=== PATIENT | male | born 1995 | race Caucasian/White ===

== ENCOUNTER 2017-03-09 21:11 | Emergency (ER) | payer OTHER ==
[2017-03-09 21:39] VITALS: BP 118/74
--- NOTE | 2017-03-09 21:46 | UC ---
Respiratory Complaint HPI - HPI Summary HPI Summary: 21 y/o male presents to the urgent care c/o nasal congestion w/ green discharge , productive cough, +PND for the past 5 days. Pt states cough is getting worse today with pain when he coughs. Pt also states he lives in ad dorm at school and 2 friends have been Dx with pneumonia this week. He has not taking anything to alleviate symptoms. He also had chills and body aches this morning. Pt denies SOB, chest pain, abdominal pain, N/V/D - History of Current Complaint Chief Complaint: UCGeneralIllness Stated Complaint: COUGH,ACHES Time Seen by Provider: 03/09/17 21:41 Hx Obtained From: Patient Onset/Duration: Gradual Onset, Lasting Days - 5 days, Still Present, Worse Since - today Timing: Constant Severity Initially: Mild Severity Currently: Moderate Pain Intensity: 5 Pain Scale Used: 0-10 Numeric Character: Cough: Productive, Sputum Description: - green Aggravating Factors: Recumbent Position Alleviating Factors: Nothing Associated Signs And Symptoms: Positive: Chills, URI, Nasal Congestion. Negative: Dyspnea, Wheezing - Risk Factors Pulmonary Embolism Risk Factors: Negative Cardiac Risk Factors: Negative Pseudomonas Risk Factors: Negative Tuberculosis Risk Factors: Negative - Allergies/Home Medications Allergies/Adverse Reactions: Allergies Allergy/AdvReac Type Severity Reaction Status Date / Time No Known Allergies Allergy Verified 03/09/17 21:31 PMH/Surg Hx/FS Hx/Imm Hx Previously Healthy: Yes - Pt denies PMHX - Surgical History Surgical History: None - Family History Family History: Hailey thyroditis - Social History Occupation: Student Lives: Dormitory/Roommates Alcohol Use: Occasionally Substance Use Type: None Smoking Status (MU): Never Smoked Tobacco - Immunization History Vaccination Up to Date: Yes Review of Systems Constitutional: Chills, Other - body aches Skin: Negative Eyes: Negative ENT: Sore Throat, Nasal Discharge Respiratory: Cough - productive Cardiovascular: Negative Gastrointestinal: Negative Genitourinary: Negative Motor: Negative Neurovascular: Negative Musculoskeletal: Negative Neurological: Negative Psychological: Negative Is Patient Immunocompromised?: No All Other Systems Reviewed And Are Negative: Yes Physical Exam Triage Information Reviewed: Yes Vital Signs: Initial Vital Signs Temp 99.6 F 03/09/17 21:32 Pulse 96 03/09/17 21:32 Resp 16 03/09/17 21:32 BP 118/74 03/09/17 21:32 Pulse Ox 98 03/09/17 21:32 - Additional Comments Vital Signs Reviewed: Yes General: well developed, well nourished male sitting in the examining table w/o any apparent distress Eyes: Positive: Conjunctiva Clear - PERRLA, EOMI, fundi grossly normal ENT: Positive: Normal ENT inspection, Hearing grossly normal, Pharynx normal, Nasal congestion - edematous and erythematous nasal mucosa, Nasal drainage - yellowish drainage, TMs normal. Negative: Tonsillar swelling, Tonsillar exudate Neck: Positive: Supple, Nontender, No Lymphadenopathy Respiratory: no orthopnea or dyspnea. Able to speak in full sentences, no retractions or accessory muscle use, no tripod position, stridor, or head bobbing. positive breasth sounds, B/l posterior upper lungs with mild rhonchi. no wheezes,or rales. Cardiovascular: Positive: RRR, No Murmur, Pulses Normal, Brisk Capillary Refill Abdomen Description: Positive: Nontender, No Organomegaly, Soft. Negative: CVA Tenderness (R), CVA Tenderness (L) Bowel Sounds: Positive: Present Musculoskeletal Exam: Normal Musculoskeletal: Positive: Strength Intact, ROM Intact, No Edema Neurological Exam: Normal Psychological Exam: Normal Skin Exam: Normal UC Diagnostic Evaluation - Laboratory O2 Sat by Pulse Oximetry: 98 Respiratory Course/Dx - Course Course Of Treatment: 21 y/o male presents to the urgent care c/o nasal congestion w/ green discharge, productive cough, +PND for the past 5 days. Pt states cough is getting worse today with pain when he coughs. Pt also states he lives in ad dorm at school and 2 friends have been Dx with pneumonia this week. He has not taking anything to alleviate symptoms. He also had chills and body aches this morning. Pt denies SOB, chest pain, abdominal pain, N/V/D. Hx obtained. Pt with Acute bronchitis on examination. Pt Rx Z-naveen PO and Advised to take Delsym PO OTC to alelviate cough. Pt advised to increase fluid intake and eat well. if not improvement or worsening of symptoms to return to the urgent care or f/u with PCP for further management. pt understood and agreed with plan of care - Differential Dx/Diagnosis Differential Diagnosis/HQI/PQRI: Bronchitis, Influenza, Laryngitis, Lower Resp Infection, Sinusitis Provider Diagnoses: 1- Acute bronchitis Discharge - Discharge Plan Condition: Stable Disposition: HOME Prescriptions: Azithromycin TAB* [Zithromax TAB (Z-NAVEEN) 250 mg #6 tabs] 250 mg PO DAILY #4 tab Patient Education Materials: Acute Bronchitis (ED) [facility] - [facility] Days Additional Instructions: 1-Please take full course of antibiotic to avoid resistance. 2-Take Delsym PO OTC directed to alleviate cough. Increase fluid intake, rest and eat well. 3- If symptoms do not improve or worsen or your develop SOB with fever and severe wheezing please go immediately to the ER further evaluation and treatment. 4- F/u with your PCP in 3 days if not improvement of symptoms for further management
[2017-03-09] MEDS ORDERED: Azithromycin TAB* 250 MG PO ONE (21:57)
== END 2017-03-09 22:17 | disposition home or self-care (01) ==
LOC: UCEAST 21:11
DX: J20.9 Acute bronchitis, unspecified (principal)
CPT/HCPCS: 87502; 99212; A9270-GY; G0463

== ENCOUNTER 2017-11-09 23:45 | Emergency (ER) | payer OTHER ==
[2017-11-10] MEDS ORDERED: oxyCODONE/Acetamin 5/325 MG* TAB PO ONE (03:48)
--- NOTE | 2017-11-10 03:51 | ED ---
Lower Extremity - HPI Summary HPI Summary: Patient is a 22 y/o M w/ c/o right ankle pain onsetting today. He reports that he was on a metal Razor scooter and jumped on the scooter. The scooter hit something, which caused the metal part of the scooter to strike his right ankle. Patient reports taking Advil 4 hours ago. He notes difficulty ambulating. On triage, pain is rated 7/10, ambulation is noted to aggravate Sx with nothing reported to alleviate Sx. Home medications and allergies are reviewed. - History of Current Complaint Chief Complaint: EDExtremityLower Stated Complaint: RT ANKLE INJURY Time Seen by Provider: 11/10/17 03:43 Hx Obtained From: Patient Mechanism Of Injury: Blunt Trauma, Direct Blow - metal scooter Onset of Pain: Prior to Arrival Onset/Duration: Still Present Severity Currently: Moderate - 5/10 Pain Intensity: 5 Pain Scale Used: 0-10 Numeric - 5/10 Timing: Constant Location: Is Discrete @ - right ankle Associated Signs And Symptoms: Positive: Other - right ankle pain Aggravating Factor(s): Ambulation Alleviating Factor(s): Nothing - Allergies/Home Medications Allergies/Adverse Reactions: Allergies Allergy/AdvReac Type Severity Reaction Status Date / Time No Known Allergies Allergy Verified 11/09/17 23:51 PMH/Surg Hx/FS Hx/Imm Hx Respiratory History: Denies: Hx Asthma Sensory History: Denies: Hx Legally Blind Opthamlomology History: Denies: Hx Legally Blind Infectious Disease History: No Infectious Disease History: Denies: Traveled Outside the [place] in Last 30 Days - Family History Known Family History: Negative: Blood Disorder Family History: Hailey thyroditis - Social History Alcohol Use: Occasionally Substance Use Type: Reports: None Smoking Status (MU): Never Smoked Tobacco Review of Systems Negative: Fever - on vitals, temp is 99.8 F Positive: Other - right ankle pain All Other Systems Reviewed And Are Negative: Yes Physical Exam - Summary Physical Exam Summary: VITAL SIGNS: Reviewed. GENERAL: Patient is a well-developed and nourished male who is lying comfortable in the stretcher. Patient is not in any acute respiratory distress. HEAD AND FACE: No signs of trauma. No ecchymosis, hematomas or skull depressions. No sinus tenderness. EYES: PERRLA, EOMI x 2, No injected conjunctiva, no nystagmus. EARS: Hearing grossly intact. Ear canals and tympanic membranes are within normal limits. MOUTH: Oropharynx within normal limits. NECK: Supple, trachea is midline, no adenopathy, no JVD, no carotid bruit, no c- spine tenderness, neck with full ROM. CHEST: Symmetric, no tenderness at palpation LUNGS: Clear to auscultation bilaterally. No wheezing or crackles. CVS: Regular rate and rhythm, S1 and S2 present, no murmurs or gallops appreciated. ABDOMEN: Soft, non-tender. No signs of distention. No rebound no guarding, and no masses palpated. Bowel sounds are normal. EXTREMITIES: FROM in all major joints, no cyanosis or clubbing. Mild tenderness and swelling at right ankle. NEURO: Alert and oriented x 3. No acute neurological deficits. Speech is normal and follows commands. SKIN: Dry and warm Triage Information Reviewed: Yes Vital Signs On Initial Exam: Initial Vitals Temp Pulse Resp BP Pulse Ox 99.8 F 69 16 115/97 100 11/09/17 23:48 11/09/17 23:48 11/09/17 23:48 11/09/17 23:48 11/09/17 23:48 Vital Signs Reviewed: Yes Diagnostics - Vital Signs Vital Signs Temp Pulse Resp BP Pulse Ox 11/10/17 01:50 98.1 F 69 16 121/63 100 11/09/17 23:48 99.8 F 69 16 115/97 100 - Laboratory Lab Statement: Any lab studies that have been ordered have been reviewed, and results considered in the medical decision making process. - Radiology right ankle x-ray Xray Interpretation: No Acute Changes Radiology Interpretation Completed By: ED Physician - no acute fracture or dislocation, pending official report. Lower Extremity Course/Dx - Course Course Of Treatment: Patient is a 22 y/o M w/ c/o right ankle pain onsetting today. He reports that he was on a metal Razor scooter and jumped on the scooter. The scooter hit something, which caused the metal part of the scooter to strike his right ankle. Patient reports taking Advil 4 hours ago. He notes difficulty ambulating. On triage, pain is rated 7/10, ambulation is noted to aggravate Sx with nothing reported to alleviate Sx. Physical exam showed Mild tenderness and swelling at right ankle. Right ankle x-ray showed no acute fracture or dislocation, pending official report. He will be discharged to home and is instructed to follow up with orthopedist in 1-2 days. Patient understands and agrees with this plan. Dx of right ankle sprain. - Diagnoses Provider Diagnoses: Right ankle sprain Discharge - Sign-Out/Discharge Documenting (check all that apply): Patient Departure - discharge - Discharge Plan Condition: Stable Disposition: HOME Prescriptions: Ibuprofen TAB* [Motrin TAB* 800 MG] 800 mg PO Q6H PRN #30 tab PRN Reason: Pain Patient Education Materials: Ankle Sprain (ED) Referrals: Oleksandr Murphy MD [Medical Doctor] - 2 Days Additional Instructions: RETURN TO THE EMERGENCY DEPARTMENT FOR CHANGING OR WORSENING SYMPTOMS. FOLLOW UP WITH ORTHOPEDIST IN 1-2 DAYS. - Attestation Statements Document Initiated by Scribe: Yes Documenting Scribe: Nilesh King Provider For Whom Scribe is Documenting (Include Credential): Collin Grullon MD Scribe Attestation: Nilesh Suero , scribed for Collin Grullon MD on 11/10/17 at 0757.
[2017-11-10 04:05] VITALS: BP 141/91
--- NOTE | 2017-11-10 08:03 | RAD ---
HISTORY: pain s/p injury, right lateral ankle pain COMPARISONS: None VIEWS: 3 , Frontal, lateral, and oblique views of the right ankle FINDINGS: BONE DENSITY: Normal. BONES: There is no displaced fracture. JOINTS: There is no arthropathy. ALIGNMENT: There is no dislocation. SOFT TISSUES: There is soft tissue swelling predominantly over the lateral malleolus. OTHER FINDINGS: None. IMPRESSION: SOFT TISSUE SWELLING. NO ACUTE OSSEOUS INJURY. IF SYMPTOMS PERSIST, RECOMMEND REPEAT IMAGING. R0
== END 2017-11-10 04:02 | disposition home or self-care (01) ==
LOC: ED 23:45
DX: S93.401A Sprain of unspecified ligament of right ankle, initial encounter (principal); W22.8XXA Striking against or struck by other objects, initial encounter; Y93.I9 Activity, other involving external motion; Y92.9 Unspecified place or not applicable
CPT/HCPCS: 99282; A9270-GY

== ENCOUNTER 2018-03-04 02:28 | Emergency (ER) | payer OTHER ==
--- NOTE | 2018-03-04 03:00 | ED ---
Shortness of Breath - HPI Summary HPI Summary: Patient is a 22 y/o M presenting to ED with complaints of SOB since yesterday. He notes that he went for a run outside yesterday. After completing his run, he states that he felt SOB and that this has progressively worsened since. He denies Hx of asthma, notes he does not smoke. 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 On triage, associated severity is rated 7/10, nothing is noted to aggravate/alleviate Sx. Home medications and allergies are reviewed. - History of Current Complaint Chief Complaint: EDShortnessOfBreath Hx Obtained From: Patient Onset/Duration: Lasting Days - yesterday, Still Present Timing: Constant Current Severity: Severe - 7/10 Aggrevating Factors: Nothing Alleviating Factors: Nothing Associated Signs & Symptoms: Negative - Allergy/Home Medications Allergies/Adverse Reactions: Allergies Allergy/AdvReac Type Severity Reaction Status Date / Time No Known Allergies Allergy Verified 03/04/18 02:36 Home Medications: Home Medications NK [No Home Medications Reported] 03/04/18 [History Confirmed 03/04/18] PMH/Surg Hx/FS Hx/Imm Hx Respiratory History: Denies: Hx Asthma Sensory History: Denies: Hx Legally Blind Opthamlomology History: Denies: Hx Legally Blind Infectious Disease History: No Infectious Disease History: Denies: Traveled Outside the [place] in Last 30 Days - Family History Known Family History: Negative: Blood Disorder Family History: Hailey thyroditis - Social History Alcohol Use: Occasionally Substance Use Type: Reports: None Smoking Status (MU): Never Smoked Tobacco Review of Systems Negative: Fever Positive: Shortness Of Breath All Other Systems Reviewed And Are Negative: Yes Physical Exam - Summary Physical Exam Summary: VITAL SIGNS: Reviewed. GENERAL: Patient is a well-developed and nourished male who is lying comfortable in the stretcher. Patient is not in any acute respiratory distress. HEAD AND FACE: No signs of trauma. No ecchymosis, hematomas or skull depressions. No sinus tenderness. EYES: PERRLA, EOMI x 2, No injected conjunctiva, no nystagmus. EARS: Hearing grossly intact. Ear canals and tympanic membranes are within normal limits. MOUTH: Oropharynx within normal limits. NECK: Supple, trachea is midline, no adenopathy, no JVD, no carotid bruit, no c- spine tenderness, neck with full ROM. CHEST: Symmetric, no tenderness at palpation LUNGS: Clear to auscultation bilaterally. No wheezing or crackles. CVS: Regular rate and rhythm, S1 and S2 present, no murmurs or gallops appreciated. ABDOMEN: Soft, non-tender. No signs of distention. No rebound no guarding, and no masses palpated. Bowel sounds are normal. EXTREMITIES: FROM in all major joints, no edema, no cyanosis or clubbing. NEURO: Alert and oriented x 3. No acute neurological deficits. Speech is normal and follows commands. SKIN: Dry and warm Triage Information Reviewed: Yes Vital Signs On Initial Exam: Initial Vitals Temp Pulse Resp BP Pulse Ox 98.3 F 77 16 133/86 97 03/04/18 02:32 03/04/18 02:32 03/04/18 02:32 03/04/18 02:32 03/04/18 02:32 Vital Signs Reviewed: Yes Diagnostics - Vital Signs Vital Signs Temp Pulse Resp BP Pulse Ox 03/04/18 02:32 98.3 F 77 16 133/86 97 - Laboratory Lab Statement: Any lab studies that have been ordered have been reviewed, and results considered in the medical decision making process. - Radiology CXR Radiology Interpretation Completed By: ED Physician Summary of Radiographic Findings: no acute process Re-Evaluation - Re-Evaluation First Eval Re-Evaluation Time: 03:32 Comment: Results were discussed with the patient. At this time, he reports that he has a history of anxiety and that he used to take Xanax. Course/Dx - Course Course Of Treatment: Patient is a 22 y/o M presenting to ED with complaints of SOB since yesterday. He notes that he went for a run outside yesterday. After completing his run, he states that he felt SOB and that this has progressively worsened since. He denies Hx of asthma, notes he does not smoke. 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 Physical exam is normal. CXR shows no acute process. ABG is consistent with hyperventilation, patient is most likely anxious. Results were discussed with the patient, he will be discharged to home. Patient is agreeable with this. - Diagnoses Provider Diagnoses: Anxiety Discharge - Sign-Out/Discharge Documenting (check all that apply): Patient Departure - discharge - Discharge Plan Condition: Stable Disposition: HOME Patient Education Materials: Anxiety (ED) Referrals: [facility] [Outside] - 2 Days Additional Instructions: RETURN TO ED WITH ANY NEW OR WORSENING SYMPTOMS. FOLLOW UP WITH PRIMARY CARE PHYSICIAN WITHIN 2 DAYS. - Attestation Statements Document Initiated by Scribe: Yes Documenting Scribe: ROBINA BOURGEOIS Provider For Whom Scribe is Documenting (Include Credential): PATRICIA CARDENAS MD Scribe Attestation: IROBINA, scribed for PATRICIA CARDENAS MD on 03/04/18 at 0333. Status of Scribe Document: Ready
[2018-03-04] MEDS ORDERED: ALPRAZolam TAB* 0.5 MG PO ONE (03:34)
[2018-03-04 03:53] VITALS: BP 111/77
== END 2018-03-04 03:50 | disposition home or self-care (01) ==
LOC: ED 02:28
DX: F41.9 Anxiety disorder, unspecified (principal); R06.02 Shortness of breath
CPT/HCPCS: 36415; 71045; 82803; 99282; A9270-GY

== ENCOUNTER 2018-03-04 14:50 | Emergency (ER) | payer OTHER ==
[2018-03-04] MEDS ORDERED: NS 0.9% 1000 ML* 1,000 ML IV ONE (15:16)
[2018-03-04] MEDS ORDERED: LORazepam INJ* 2 MG/ML 1 ML VIAL IV PUSH ONE (15:17)
--- NOTE | 2018-03-04 15:29 | ED ---
Shortness of Breath - HPI Summary HPI Summary: A 22 y/o M presents to ED with c/o dyspnea onset two days ago and worsening. He went for a long run in the cold two days ago and the sx began after that. He describes his breathing as shallow and uncomfortable. Patient was evaluated in [facility] last night and given dx: anxiety, which he didn't feel was sufficient. Associated sx: wheezing, cough, fatigue, racing palpitations, muscular L-sided CP described as sharp. Denies: fever, urinary sx. Aggravating factors: cold air , deep breaths. Two weeks ago, pt had abd and testicular pain, and went to the ED back home, dx: prostatitis. 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 He did travel by plane to [place] two weeks ago. Pt used to be a distance runner, but hasn't been running recently. He has had a flu shot. Non-smoker. No PMHx of asthma, COPD, HTN, high cholesterol, thyroid dz. PMHx: anxiety, but he states it has not caused physical symptoms previously. He has not been around anyone sick. - History of Current Complaint Chief Complaint: EDShortnessOfBreath Time Seen by Provider: 03/04/18 15:15 Hx Obtained From: Patient Onset/Duration: Lasting Days, Still Present Timing: Constant Current Severity: Moderate Dyspnea At: Rest Aggrevating Factors: Deep Breaths, Other - cold air Associated Signs & Symptoms: Cough (Nonproductive), Wheezing, Chest Pain Unrelated to Cough - Allergy/Home Medications Allergies/Adverse Reactions: Allergies Allergy/AdvReac Type Severity Reaction Status Date / Time No Known Allergies Allergy Verified 03/04/18 14:58 PMH/Surg Hx/FS Hx/Imm Hx Previously Healthy: Yes Endocrine/Hematology History: Denies: Hx Thyroid Disease Cardiovascular History: Denies: Hx Hypertension Respiratory History: Denies: Hx Asthma, Hx Chronic Obstructive Pulmonary Disease (COPD) Sensory History: Denies: Hx Legally Blind Opthamlomology History: Denies: Hx Legally Blind Psychiatric History: Reports: Hx Anxiety Infectious Disease History: No Infectious Disease History: Denies: Traveled Outside the [place] in Last 30 Days - Family History Known Family History: Negative: Blood Disorder Family History: Hailey thyroditis - Social History Occupation: Student Lives: Dormitory/Roommates Alcohol Use: Occasionally Hx Substance Use: No Substance Use Type: Reports: None Hx Tobacco Use: No Smoking Status (MU): Never Smoked Tobacco Review of Systems Positive: Fatigue. Negative: Fever Positive: Palpitations, Chest Pain Positive: Cough, Other - dyspnea, shallow breathing, wheezing Negative: dysuria, hematuria All Other Systems Reviewed And Are Negative: Yes Physical Exam - Summary Physical Exam Summary: Appearance: Well appearing, no pain distress Skin: warm, dry, reflects adequate perfusion Head/face: normal Eyes: EOMI, DALIA ENT: mucous membranes moist Neck: supple, non-tender Respiratory: CTA, breath sounds present, occasional sighs Cardiovascular: RRR, pulses symmetrical Abdomen: non-tender, soft Bowel Sounds: present Musculoskeletal: normal, strength/ROM intact Neuro: normal, sensory motor intact, A&Ox3 Triage Information Reviewed: Yes Vital Signs On Initial Exam: Initial Vitals Temp Pulse Resp BP Pulse Ox 98.3 F 60 16 110/80 99 03/04/18 14:54 03/04/18 14:54 03/04/18 14:54 03/04/18 14:54 03/04/18 14:54 Vital Signs Reviewed: Yes Diagnostics - Vital Signs Vital Signs Temp Pulse Resp BP Pulse Ox 03/04/18 14:54 98.3 F 60 16 110/80 99 - Laboratory Result Diagrams: 03/04/18 15:29 03/04/18 15:29 Lab Statement: Any lab studies that have been ordered have been reviewed, and results considered in the medical decision making process. - EKG 1640 Cardiac Rate: NL - 61 bpm EKG Rhythm: Sinus Rhythm ST Segment: Normal Summary of EKG Findings: normal axis, normal interval Re-Evaluation - Re-Evaluation 1 Re-Evaluation Time: 17:01 Change: Improved Comment: Pt breathing better after breathing treatment. Discussing results and plan for dispo. Pt voiced understanding. Course/Dx - Course Course Of Treatment: nurses notes reviewed. alkalotic. xray clear. ddimer neg. likely viral. improved with breathing tx. will rx for delayed script zpak. prednisone and albuterol. - Diagnoses Differential Diagnosis/HQI/PQRI: Positive: Asthma, Bronchitis, Chest Wall Pain, Pulmonary Embolism Provider Diagnoses: Acute bronchitis Discharge - Sign-Out/Discharge Documenting (check all that apply): Patient Departure - D/C - Discharge Plan Condition: Improved Disposition: HOME Prescriptions: Albuterol HFA INHALER* [Ventolin HFA Inhaler*] 2 puff INH Q4H PRN #1 mdi PRN Reason: Sob/Wheezing Azithromycin TAB* [Zithromax TAB (Z-NAVEEN) 250 mg #6 tabs] 2 tab PO .TODAY, THEN 1 DAILY #1 naveen guaiFENesin [Guaifenesin ER] 600 mg PO BID #20 tab.er.12h predniSONE TAB* [Deltasone TAB*] 50 mg PO DAILY #5 tab Patient Education Materials: Acute Bronchitis (ED) Referrals: [facility] [Provider Group] Additional Instructions: Follow-up with [facility] or with the urgent care in the next 4-5 days if not better. Return with high fevers, difficulty breathing, worse, new symptoms or other concerns as discussed. No strenuous exercise for 10 days. - Billing Disposition and Condition Condition: IMPROVED Disposition: Home - Attestation Statements Document Initiated by Aishwarya: Yes Documenting Scribe: Nestor Nettles Provider For Whom Aishwarya is Documenting (Include Credential): Dr. Jorge Newton MD Scribe Attestation: INestor scribed for Dr. Jorge Newton MD on 03/04/18 at 1722. Scribe Documentation Reviewed: Yes Provider Attestation: The documentation as recorded by the Nestor hanks accurately reflects the service I personally performed and the decisions made by , Dr. Jorge Newton MD Status of Scribe Document: Viewed
[2018-03-04 15:38] LABS: ABS Basophils 0.1 10^3/ul (0-0.2); ABS Eosinophils 0.1 10^3/ul (0-0.6); ABS Lymphocytes 1.4 10^3/ul (1.0-4.8); ABS Monocytes 0.7 10^3/ul (0-0.8); ABS Neutrophils 2.8 10^3/ul (1.5-7.7); ABS Nucleated RBC 0 10^3/ul; Eosinophil % 2.6 %; Hematocrit 47 % (42-52); Hemoglobin 15.7 g/dl (14.0-18.0); Lymphocyte % 26.4 %; Mean Corpuscular HGB Conc 34 g/dl (31-36); Mean Corpuscular Hemoglobin 31 pg (27-31); Mean Corpuscular Volume 91 fL (80-94); Mean Platelet Volume 9.1 fL (7.4-10.4); Nucleated Red Blood Cells % 0; Platelet Count 184 10^3/ul (150-450); Red Blood Count 5.16 10^6/ul (4.00-5.40); Red Cell Distribution Width 13 % (10.5-15); White Blood Count 5.2 10^3/ul (3.5-10.8)
[2018-03-04] MEDS ORDERED: Albuterol/Ipratropium NEB.SOL* Albuterol 2.5 MG/Ipratropium 0.5 MG 3 ML INH ONE (15:45)
[2018-03-04 16:00] LABS: BUN/Creatinine Ratio 15.4 (8-20); Calcium 9.6 mg/dL (8.6-10.3); EGFR Non-African American 88.5 (>60); Potassium 3.8 mmol/L (3.5-5.0)
[2018-03-04 17:17] VITALS: BP 121/65
== END 2018-03-04 17:16 | disposition home or self-care (01) ==
LOC: ED 14:50
DX: J20.9 Acute bronchitis, unspecified (principal); F41.9 Anxiety disorder, unspecified
CPT/HCPCS: 36415; 80048; 84484; 85025; 85379; 93005; 96361; 96374; 99282; A9270-GY

== ENCOUNTER 2018-03-05 01:24 | Emergency (ER) | payer OTHER ==
--- NOTE | 2018-03-05 01:50 | ED ---
HPI Chest Pain - HPI Summary HPI Summary: Patient is a 22 y/o M presenting to ED with complaints of sharp, intermittent episodes of left-sided chest pain. Episodes are reported to last a few seconds, but he states that intensity of these episodes have been progressively worsening. Patient has been seen yesterday and earlier today as well. He was discharged today with acute bronchitis. Patient was prescribed prednisone and albuterol inhaler, which he took at 1800 today. He states that for his peace of mind, he would like CTA. Risks and possible consequences of irradiation were extensively discussed with patient, he remains insistent that he get CTA. On triage, pain is rated 5/10. Home medications and allergies are reviewed. - History of Current Complaint Chief Complaint: EDChestWallPain Time Seen by Provider: 03/05/18 01:38 Hx Obtained From: Patient Onset/Duration: Still Present Timing: Intermittent, Lasting Seconds Current Severity: Moderate - 5/10 Pain Intensity: 5 Chest Pain Location: Left Anterior Aggravating Factor(s): Nothing Alleviating Factor(s): Nothing Associated Signs and Symptoms: Positive: Chest Pain - Allergy/Home Medications Allergies/Adverse Reactions: Allergies Allergy/AdvReac Type Severity Reaction Status Date / Time No Known Allergies Allergy Verified 03/05/18 01:36 PMH/Surg Hx/FS Hx/Imm Hx Endocrine/Hematology History: Denies: Hx Thyroid Disease Cardiovascular History: Denies: Hx Hypertension Respiratory History: Denies: Hx Asthma, Hx Chronic Obstructive Pulmonary Disease (COPD) Sensory History: Denies: Hx Legally Blind Opthamlomology History: Denies: Hx Legally Blind Psychiatric History: Reports: Hx Anxiety Infectious Disease History: No Infectious Disease History: Denies: Traveled Outside the [place] in Last 30 Days - Family History Known Family History: Positive: Other - Hailey thyroditis Negative: Blood Disorder Family History: Hailey thyroditis - Social History Alcohol Use: Occasionally Hx Substance Use: No Substance Use Type: Reports: None Hx Tobacco Use: No Smoking Status (MU): Never Smoked Tobacco Review of Systems Negative: Fever Positive: Chest Pain All Other Systems Reviewed And Are Negative: Yes Physical Exam - Summary Physical Exam Summary: VITAL SIGNS: Reviewed. GENERAL: Patient is a well-developed and nourished male who is lying comfortable in the stretcher. Patient is not in any acute respiratory distress. HEAD AND FACE: No signs of trauma. No ecchymosis, hematomas or skull depressions. No sinus tenderness. EYES: PERRLA, EOMI x 2, No injected conjunctiva, no nystagmus. EARS: Hearing grossly intact. Ear canals and tympanic membranes are within normal limits. MOUTH: Oropharynx within normal limits. NECK: Supple, trachea is midline, no adenopathy, no JVD, no carotid bruit, no c- spine tenderness, neck with full ROM. CHEST: Symmetric, no tenderness at palpation LUNGS: Clear to auscultation bilaterally. No wheezing or crackles. CVS: Regular rate and rhythm, S1 and S2 present, no murmurs or gallops appreciated. ABDOMEN: Soft, non-tender. No signs of distention. No rebound no guarding, and no masses palpated. Bowel sounds are normal. EXTREMITIES: FROM in all major joints, no edema, no cyanosis or clubbing. NEURO: Alert and oriented x 3. No acute neurological deficits. Speech is normal and follows commands. SKIN: Dry and warm Triage Information Reviewed: Yes Vital Signs On Initial Exam: Initial Vitals Temp Pulse Resp BP Pulse Ox 99.0 F 63 18 127/73 98 03/05/18 01:30 03/05/18 01:30 03/05/18 01:30 03/05/18 01:30 03/05/18 01:30 Vital Signs Reviewed: Yes Diagnostics - Vital Signs Vital Signs Temp Pulse Resp BP Pulse Ox 03/05/18 01:30 99.0 F 63 18 127/73 98 - Laboratory Lab Statement: Any lab studies that have been ordered have been reviewed, and results considered in the medical decision making process. - CT chest/thorax CTA CT Interpretation Completed By: Radiologist Summary of CT Findings: CTA CHEST/THORAX IMPRESSION: Negative CTA chest. No pulmonary embolism is identified. THIS REPORT WAS REVIEWED BY ED PHYSICIAN. - EKG 0132 Cardiac Rate: Bradycardia - rate of 58 BPM EKG Rhythm: Sinus Bradycardia ST Segment: Normal Summary of EKG Findings: EKG showed sinus bradycardia with rate of 58 BPM, normal axis, normal interval, normal ST. Chest Pain Course/Dx - Course Course Of Treatment: Patient is a 22 y/o M presenting to ED with complaints of sharp, intermittent episodes of left-sided chest pain. Episodes are reported to last a few seconds, but he states that intensity of these episodes have been progressively worsening. Patient has been seen yesterday and earlier today as well. He was discharged today with acute bronchitis. Patient was prescribed prednisone and albuterol inhaler, which he took at 1800 today. He states that for his peace of mind, he would like CTA. Risks and possible consequences of irradiation were extensively discussed with patient, he remains insistent that he get CTA. Physical exam is normal. EKG showed sinus bradycardia with rate of 58 BPM, normal axis, normal interval, normal ST. CTA CHEST/THORAX IMPRESSION: Negative CTA chest. No pulmonary embolism is identified. Results were discussed with patient, had a long conversation about his anxiety. He will be discharged to home. - Diagnoses Provider Diagnoses: Anxiety Discharge - Sign-Out/Discharge Documenting (check all that apply): Patient Departure - discharge - Discharge Plan Condition: Stable Disposition: HOME Prescriptions: ALPRAZolam TAB* [Xanax TAB*] 0.25 mg PO BID PRN #20 tab MDD 4 PRN Reason: Anxiety Patient Education Materials: Anxiety (ED) Referrals: [facility] [Outside] - 2 Days Additional Instructions: RETURN TO THE EMERGENCY DEPARTMENT FOR CHANGING OR WORSENING SYMPTOMS. FOLLOW UP WITH PRIMARY CARE PHYSICIAN IN 1-2 DAYS. - Attestation Statements Document Initiated by Scribe: Yes Documenting Scribe: ROBINA BOURGEOIS Provider For Whom Scribe is Documenting (Include Credential): PATRICIA CARDENAS MD Scribe Attestation: ROBINA Suero , scribed for PATRICIA CARDENAS MD on 03/05/18 at 0339. Status of Scribe Document: Ready
[2018-03-05] MEDS ORDERED: Iohexol 350* (CONTRAST) 500 ML MDV IV ONE (02:18)
[2018-03-05 03:57] VITALS: BP 122/73
== END 2018-03-05 04:25 | disposition home or self-care (01) ==
LOC: ED 01:24
DX: F41.9 Anxiety disorder, unspecified (principal); R07.9 Chest pain, unspecified
CPT/HCPCS: 71275; 93005; 99283

== ENCOUNTER → 2018-03-08 01:54 | Emergency (ER) | payer OTHER ==
[~2018-03-08 01:54] MED LIST: ALPRAZolam TAB* 0.5 MG PO ONE
--- NOTE | 2018-03-08 02:17 | ED ---
Complex/Multi-Sys Presentation - HPI Summary HPI Summary: This patient is a 22 year old M with hx anxiety presenting to [facility] with a chief complaint of facial numbness since 00:30. Patient notes that his symptoms began after he drank 1 beer. The patient has been seen several times recently at [facility] for different symptoms. The patient rates the pain 8/10 in severity. Symptoms aggravated by recent stress. Symptoms alleviated by nothing. Patient reports dizziness, difficulty speaking, and nausea. Patient states that when he was here last he was told he had anxiety. Patient notes that he has had anxiety for a while but notes that what he is experiencing now is worse than usual. Patient notes that he previously took a health leave from [employer] due to difficulties dealing with OCD. Patient also notes recent dx of prostatitis. - History Of Current Complaint Chief Complaint: EDGeneral Hx Obtained From: Patient Onset/Duration: Sudden Onset, Lasting Hours, Still Present Timing: Constant Severity Currently: Mild Severity Initially: Mild Aggravating Factor(s): recent stress Alleviating Factor(s): nothing Associated Signs And Symptoms: Positive: Dizziness, Nausea, Other - difficulty speaking, facial numbness - Allergies/Home Medications Allergies/Adverse Reactions: Allergies Allergy/AdvReac Type Severity Reaction Status Date / Time No Known Allergies Allergy Verified 03/05/18 01:36 PMH/Surg Hx/FS Hx/Imm Hx Endocrine/Hematology History: Denies: Hx Thyroid Disease Cardiovascular History: Denies: Hx Hypertension Respiratory History: Denies: Hx Asthma, Hx Chronic Obstructive Pulmonary Disease (COPD) Sensory History: Denies: Hx Legally Blind Opthamlomology History: Denies: Hx Legally Blind Psychiatric History: Reports: Hx Anxiety Infectious Disease History: No Infectious Disease History: Denies: Traveled Outside the [place] in Last 30 Days - Family History Known Family History: Positive: Other - Hailey thyroditis Negative: Blood Disorder Family History: Hailey thyroditis - Social History Alcohol Use: Occasionally Hx Substance Use: No Substance Use Type: Reports: None Hx Tobacco Use: No Smoking Status (MU): Never Smoked Tobacco Review of Systems Negative: Fever Negative: Epistaxis Negative: Cough Positive: Nausea Neurological: Other - dizziness, difficulty speaking Positive: Numbness - in cheeks and face Positive: Anxious All Other Systems Reviewed And Are Negative: Yes Physical Exam - Summary Physical Exam Summary: Appearance: Well-appearing, Well-nourished, lying in bed comfortably Skin: Warm, dry, no obvious rash Eyes: sclera anicteric, no conjunctival pallor ENT: mucous membranes moist, pharynx appears normal Neck: Supple, nontender Respiratory: Clear to auscultation, no signs of respiratory distress Cardiovascular: Normal S1, S2. No murmurs. Normal distal pulses in tibial and radial bilaterally. Abdomen: Soft, nontender, normal active bowel sounds present Musculoskeletal: Normal, Strength/ROM Intact Neurological: A&Ox3, awake and alert, mentation is normal, speech is fluent and appropriate Psychiatric: affect is normal, does not appear anxious or depressed Triage Information Reviewed: Yes Vital Signs On Initial Exam: Initial Vitals Temp Pulse Resp BP Pulse Ox 98.7 F 82 18 125/84 98 03/08/18 01:56 03/08/18 01:56 03/08/18 01:56 03/08/18 01:56 03/08/18 01:56 Vital Signs Reviewed: Yes Diagnostics - Vital Signs Vital Signs Temp Pulse Resp BP Pulse Ox 03/08/18 01:56 98.7 F 82 18 125/84 98 - Laboratory Lab Statement: Any lab studies that have been ordered have been reviewed, and results considered in the medical decision making process. Complex Multi-Symp Course/Dx Course Of Treatment: This patient is a 22 year old M with hx anxiety presenting to [facility] with a chief complaint of facial numbness, dizziness, difficulty speaking, and nausea since 00:30. The patient has been seen several times recently at [facility] for different symptoms. Patient states that when he was here last he was told he had anxiety. Patient will be discharged with follow up from PCP. Dx hypochondriasis and facial paresthesias. The patient is agreeable with this plan. - Diagnoses Provider Diagnoses: Hypochondriasis, Facial paresthesia Discharge - Sign-Out/Discharge Documenting (check all that apply): Patient Departure - discharge - Discharge Plan Condition: Good Disposition: HOME Patient Education Materials: Hypochondriasis (ED), Paresthesia (ED) Referrals: [facility] [Outside] - If Needed - Billing Disposition and Condition Condition: GOOD Disposition: Home - Attestation Statements Document Initiated by Scribe: Yes Documenting Scribe: Ebonie Jarvis Provider For Whom Scribe is Documenting (Include Credential): Donato Kaplan MD Scribe Attestation: IEbonie, scribed for Donato Kaplan MD on 03/08/18 at 0438. Scribe Documentation Reviewed: Yes Provider Attestation: The documentation as recorded by the scribe, Ebonie Jarvis accurately reflects the service I personally performed and the decisions made by me, Donato Kaplan MD Status of Scribe Document: Viewed
[2018-03-08 02:37] VITALS: BP 136/74
== END | disposition home or self-care (01) ==
LOC: ED 01:54
DX: F45.21 Hypochondriasis (principal); R20.2 Paresthesia of skin; R42 Dizziness and giddiness; R11.0 Nausea; R20.0 Anesthesia of skin; F41.9 Anxiety disorder, unspecified
CPT/HCPCS: 99281; A9270-GY

== ENCOUNTER 2018-03-09 20:10 | Emergency (ER) | payer OTHER ==
[2018-03-09 20:32] VITALS: BP 130/79
--- NOTE | 2018-03-09 21:37 | UC ---
General HPI - HPI Summary HPI Summary: PATIENT COMPLAINS OF SEVERAL DAYS OF DIFFUSE NUMBNESS IN HIS BODY. STATES THIS STARTED IN HIS CHEEKS AND SPREAD TO HIS TRUNK AND LIMBS OVER THE NEXT FEW HOURS. HE HAS BEEN FEELING EXCESSIVELY FATIGUED, QUEASY AND FAINT. HE HAS DIFFUSE ACHINESS, JOINT PAIN AND MILD CÁRDENAS. HE DENIES ANY HEAD INJURY OR LOC. NO FEVER. PATIENT HAS BEEN TO THE [facility] ER 4 TIMES IN THE PAST 1 WEEK. NEGATIVE CHEST CTA. PT REPORTS NEGATIVE CT ABD DONE AT OUTSIDE FACILITY. PATIENT IS VERY FRUSTRATED AT THE LACK OF INSIGHT SHED ON HIS SYMPTOMS. HE REPORTS IT IS NOT HIS ANXIETY. HE HAS BEEN EVALUATED BY A LYME DISEASE SPECIALIST AND AN BAKER OPERATOR AUT[employer]ATIC WITH NO CLEAR DIAGNOSIS. HE WAS TREATED FOR PRESUMPTIVE BRONCHITIS AND PROSTATITIS. - History of Current Complaint Chief Complaint: UCGeneralIllness Stated Complaint: NUMBNESS Time Seen by Provider: 03/09/18 20:35 Hx Obtained From: Patient Onset/Duration: Gradual Onset, Lasting Days, Still Present Timing: Constant Onset Severity: Moderate Current Severity: Moderate Pain Intensity: 7 - Allergy/Home Medications Allergies/Adverse Reactions: Allergies Allergy/AdvReac Type Severity Reaction Status Date / Time No Known Allergies Allergy Verified 03/09/18 20:13 Home Medications: Home Medications Bisacodyl EC TAB* [Dulcolax EC TAB*] 5 mg PO DAILY PRN 03/09/18 [History Confirmed 03/09/18] clonazePAM TAB(*) [Klonopin TAB(*)] 0.5 mg PO ONCE 03/09/18 [History Confirmed 03/09/18] PMH/Surg Hx/FS Hx/Imm Hx Psychological History: Anxiety - Surgical History Surgical History: None - Family History Known Family History: Positive: Other - Hailey thyroditis Negative: Blood Disorder Family History: Hailey thyroditis - Social History Alcohol Use: Occasionally Substance Use Type: None Smoking Status (MU): Never Smoked Tobacco - Immunization History Vaccination Up to Date: Yes Review of Systems All Other Systems Reviewed And Are Negative: Yes Constitutional: Positive: Fatigue Respiratory: Positive: Negative Cardiovascular: Positive: Chest Pain Gastrointestinal: Positive: Negative Musculoskeletal: Positive: Arthralgia, Myalgia Neurological: Positive: Headache, Numbness Physical Exam Triage Information Reviewed: Yes Appearance: Well-Appearing, No Pain Distress, Well-Nourished Vital Signs: Initial Vital Signs Temp 100 F 03/09/18 20:17 Pulse 82 03/09/18 20:17 Resp 18 03/09/18 20:17 BP 130/79 03/09/18 20:17 Pulse Ox 97 03/09/18 20:17 Vital Signs Reviewed: Yes Eyes: Positive: Conjunctiva Clear, Other: - PERRL, EOMI ENT: Positive: Hearing grossly normal, Pharynx normal, TMs normal Neck: Positive: Supple, Nontender, No Lymphadenopathy Respiratory Exam: Normal Cardiovascular Exam: Normal Abdomen Description: Positive: Nontender, Soft Musculoskeletal: Positive: ROM Intact, No Edema Neurological: Positive: Alert, Muscle Tone Normal, Other: - CN II-XII GROSSLY INTACT BILATERALLY. RAPID ALTERNATING MOVEMENTS INTACT. NEG PRONATOR DRIFT. NEG ROMBERG. 5/5 STRENGTH. HEEL TO GILBERT INTACT BILATERALLY. TANDEM GAIT INTACT. FINGER TO NOSE INTACT. Psychological: Positive: Age Appropriate Behavior Skin: Negative: Rashes Diagnostics - EKG Cardiac Rate: Bradycardia - 54BPM Cardiac Rhythm: Sinus: Normal Ectopy: None ST Segment: Normal EKG Comparison: No Significant Change Course/Dx - Course Course Of Treatment: PATIENT WITH MULTIPLE VISITS TO THE EMERGENCY DEPARTMENT OVER THE PAST WEEK PRESENTING WITH PERSISTENT DIFFUSE SENSATION OF NUMBNESS, ACHINESS AND FATIGUE. IS REQUESTING WE START A FULL WORKUP HE IS TRULY CONCERNED THERE IS SOMETHING ORGANIC GOING ON. HE REPORTS HAVING HAD CHEST AND ABDOMINAL CT SCANS THAT WERE UNREMARKABLE. HE HAS SEEN A LYME SPECIALIST WELL AN BAKER OPERATOR AUTOMATIC. CT HEAD TODAY WAS UNREMARKABLE. EKG UNREMARKABLE. LABS DRAWN TODAY INCLUDE CBC, CMP, TSH, LYME SEROLOGY, CONNECTIVE TISSUE PANEL, B12, FOLATE, MAGNESIUM, VITAMIN D, MONOSPOT. REFERRAL TO NEUROLOGY. PATIENT MAY BENEFIT FROM A RHEUMATOLOGY EVALUATION. HE HAS AN APPOINTMENT WITH [facility] COMING UP THIS WEEK WHICH HE HAS BEEN ENCOURAGED TO KEEP. - Diagnoses Provider Diagnosis: Chest pain, Diffuse arthralgia, Paresthesias/numbness Discharge - Sign-Out/Discharge Documenting (check all that apply): Patient Departure All imaging exams completed and their final reports reviewed: Yes - Discharge Plan Condition: Stable Disposition: HOME Patient Education Materials: Chest Pain (ED), Paresthesia (ED), Arthralgia (ED) Referrals: [facility] [Provider Group] Mook Kelly MD [Medical Doctor] - 2 Weeks Additional Instructions: HEAD CT TODAY UNREMARKABLE. EKG LOOKS OKAY AND IS UNCHANGED FROM THE ER. LABS DRAWN TODAY INCLUDE CBC, CMP, TSH, LYME SEROLOGY, CONNECTIVE TISSUE PANEL, B12, FOLATE, MAGNESIUM, VITAMIN D, MONOSPOT. REFERRAL TO NEUROLOGY. CALL SUNDAY MORNING FOR AN APPOINTMENT. YOU MAY BENEFIT FROM A RHEUMATOLOGY EVALUATION. BASED ON YOUR LAB RESULTS AND SYMPTOMS YOU CAN DISCUSS THIS WITH [facility]. KEEP YOUR APPT WITH [facility] THIS WEEK. - Billing Disposition and Condition Condition: STABLE Disposition: Home
[2018-03-10 14:12] LABS: ABS Basophils 0 10^3/ul (0-0.2); ABS Eosinophils 0.1 10^3/ul (0-0.6); ABS Lymphocytes 1.4 10^3/ul (1.0-4.8); ABS Monocytes 0.5 10^3/ul (0-0.8); ABS Neutrophils 3.6 10^3/ul (1.5-7.7); ABS Nucleated RBC 0 10^3/ul; Eosinophil % 1.8 %; Hematocrit 47 % (42-52); Hemoglobin 15.8 g/dl (14.0-18.0); Lymphocyte % 24.2 %; Mean Corpuscular HGB Conc 34 g/dl (31-36); Mean Corpuscular Hemoglobin 31 pg (27-31); Mean Corpuscular Volume 91 fL (80-94); Mean Platelet Volume 10.4 fL (7.4-10.4); Nucleated Red Blood Cells % 0.1; Platelet Count 192 10^3/ul (150-450); Red Blood Count 5.11 10^6/ul (4.00-5.40); Red Cell Distribution Width 13 % (10.5-15); White Blood Count 5.7 10^3/ul (3.5-10.8)
[2018-03-10 14:21] LABS: Albumin 4.6 g/dL (3.2-5.2); Anion Gap 6 mmol/L (2-11); CO2 Carbon Dioxide 31 mmol/L (22-32); Calcium 10.1 mg/dL (8.6-10.3); Chloride 103 mmol/L (101-111); Magnesium 2.3 mg/dL (1.9-2.7); Sodium 140 mmol/L (135-145)
[2018-03-10 14:27] LABS: ALT 12 U/L (7-52); AST 18 U/L (13-39); Albumin/Globulin Ratio 1.7 (1-3); Alkaline Phosphatase 59 U/L (34-104); Blood Urea Nitrogen 15 mg/dL (6-24); EGFR African American 129.9 (>60); EGFR Non-African American 107.3 (>60); Globulin 2.7 g/dL (2-4); Glucose 100 mg/dL (70-100); Total Protein 7.3 g/dL (6.4-8.9)
[2018-03-10 14:38] LABS: TSH (Thyroid Stimulating Horm) 1.59 mcIU/mL (0.34-5.60)
[2018-03-10 14:49] LABS: Folate > 20.00 ng/mL (>3.99)
--- NOTE | 2018-03-10 18:09 | UC ---
- Progress Note Progress Note: PT CALLED STATING HE IS FEELING WORSE TODAY. MORE NAUSEA AND QUEASINESS. WORSENING CHEST PAIN. REVIEWED LABS FROM YESTERDAY. SO FAR ALL UNREMARKABLE. PT WONDERING WHAT TO DO. I ADVISED THAT IF HE IS TRULY FEELING WORSE THEN HE SHOULD GO BACK TO THE ER FOR RE-EVALUATION. Course/Dx - Diagnoses Provider Diagnoses: Chest pain, Diffuse arthralgia, Paresthesias/numbness Discharge - Sign-Out/Discharge Documenting (check all that apply): Post-Discharge Follow Up All imaging exams completed and their final reports reviewed: Yes - Discharge Plan Condition: Stable Disposition: HOME Patient Education Materials: Chest Pain (ED), Paresthesia (ED), Arthralgia (ED) Referrals: [facility] [Provider Group] Mook Kelly MD [Medical Doctor] - 2 Weeks Additional Instructions: HEAD CT TODAY UNREMARKABLE. EKG LOOKS OKAY AND IS UNCHANGED FROM THE ER. LABS DRAWN TODAY INCLUDE CBC, CMP, TSH, LYME SEROLOGY, CONNECTIVE TISSUE PANEL, B12, FOLATE, MAGNESIUM, VITAMIN D, MONOSPOT. REFERRAL TO NEUROLOGY. CALL SUNDAY MORNING FOR AN APPOINTMENT. YOU MAY BENEFIT FROM A RHEUMATOLOGY EVALUATION. BASED ON YOUR LAB RESULTS AND SYMPTOMS YOU CAN DISCUSS THIS WITH [facility]. KEEP YOUR APPT WITH [facility] THIS WEEK. - Billing Disposition and Condition Condition: STABLE Disposition: Home
== END 2018-03-09 22:27 | disposition home or self-care (01) ==
LOC: UCEAST 20:10
DX: R07.89 Other chest pain (principal); M25.50 Pain in unspecified joint; R20.2 Paresthesia of skin; R20.0 Anesthesia of skin; F41.9 Anxiety disorder, unspecified
CPT/HCPCS: 36415; 70450; 80053; 82306; 82607; 82746; 83735; 84443; 85025; 86038; 86200; 86308; 86618; 99211; G0463

== ENCOUNTER 2018-03-10 17:15 | Emergency (ER) | payer OTHER ==
--- NOTE | 2018-03-10 19:11 | ED ---
Complex/Multi-Sys Presentation - HPI Summary HPI Summary: This patient is a 22 year old male presenting to the emergency department with a multiple complaints. His main concern is a numbness that began in his UEs two days, has spread into both his legs, and into his chest. Also tonight he was taking a shower when he felt faint, when this resolved he had a headache and felt nauseous. Also during the episode of feeling faint he had chest pressure ad SOB, but these resolved. He still feels nauseous. The patient also c /o general malaise, fatigue, increased need for sleep, LEs feeling cold, and weakness. He states when he woke up yesterday he was so weak he could barely make a fist. Pt denies fever, sore throat, and ear pain. He states he doesnt not feel anxious and he does have difficulty walking describes it as imbalance. In the last few weeks to months he states he is reacting differently to loud noise, heat, and change in positions. He denies drug and etoh use. Hx of anxiety , took klonopin increased sx were anxiety related. - History Of Current Complaint Chief Complaint: EDGeneral Time Seen by Provider: 03/10/18 19:01 Hx Obtained From: Patient Onset/Duration: Lasting Days, Still Present Timing: Constant Severity Currently: Moderate Severity Initially: Moderate Associated Signs And Symptoms: Positive: Other - see HPI - Allergies/Home Medications Allergies/Adverse Reactions: Allergies Allergy/AdvReac Type Severity Reaction Status Date / Time No Known Allergies Allergy Verified 03/09/18 20:13 PMH/Surg Hx/FS Hx/Imm Hx Endocrine/Hematology History: Denies: Hx Thyroid Disease Cardiovascular History: Denies: Hx Hypertension Respiratory History: Denies: Hx Asthma, Hx Chronic Obstructive Pulmonary Disease (COPD) Sensory History: Denies: Hx Legally Blind Opthamlomology History: Denies: Hx Legally Blind Psychiatric History: Reports: Hx Anxiety Infectious Disease History: No Infectious Disease History: Denies: Traveled Outside the [place] in Last 30 Days - Family History Known Family History: Positive: Other - Hailey thyroditis Negative: Blood Disorder Family History: Hailey thyroditis - Social History Alcohol Use: Occasionally Hx Substance Use: No Substance Use Type: Reports: None Hx Tobacco Use: No Smoking Status (MU): Never Smoked Tobacco Review of Systems Positive: Other - general malaise, fatigue, increased need for sleep. Negative : Fever ENT: Other - differently to loud noise, heat, and change in positions Negative: Sore Throat, Ear Ache Positive: Chest Pain, Other - LE's feel cold Positive: Shortness Of Breath Positive: Nausea Neurological: Other - imblance when walking Positive: Headache, Weakness, Numbness, Syncope - near Negative: Anxious All Other Systems Reviewed And Are Negative: Yes Physical Exam - Summary Physical Exam Summary: Appearance: Well appearing, no pain distress Skin: warm, dry, reflects adequate perfusion Head/face: normal Eyes: EOMI, DALIA ENT: normal Neck: supple, non-tender Respiratory: CTA, breath sounds present Cardiovascular: RRR, pulses symmetrical Abdomen: non-tender, soft Musculoskeletal: normal, strength/ROM intact Neuro: diminished reflexes in LEs., A&Ox3 Triage Information Reviewed: Yes Vital Signs On Initial Exam: Initial Vitals Temp Pulse Resp BP Pulse Ox 99.0 F 67 18 132/88 98 03/10/18 17:25 03/10/18 17:25 03/10/18 17:25 03/10/18 17:25 03/10/18 17:25 Vital Signs Reviewed: Yes Procedures - Lumbar Puncture Midline Position: Lateral Decubitus Aseptic Technique: Local Anesthesia Anesthesia Used: 2.0% Lido - with epi Spinal Needle Used: 22 Gauge Diagnostics - Vital Signs Vital Signs Temp Pulse Resp BP Pulse Ox 03/10/18 17:25 99.0 F 67 18 132/88 98 - Laboratory Lab Statement: Any lab studies that have been ordered have been reviewed, and results considered in the medical decision making process. - Radiology xray l spine Radiology Interpretation Completed By: ED Physician Summary of Radiographic Findings: No fracture seen. Pending official report. Complex Multi-Symp Course/Dx Assessment/Plan: This patient is a 22 year old male presenting to the emergency department with a multiple complaints. His main concern is a numbness that began in his UEs two days, has spread into both his legs, and into his chest. Also tonight he was taking a shower when he felt faint, when this resolved he had a headache and felt nauseous. Also during the episode of feeling faint he had chest pressure ad SOB, but these resolved. He still feels nauseous. The patient also c/o general malaise, fatigue, increased need for sleep, LEs feeling cold, and weakness. He states when he woke up yesterday he was so weak he could barely make a fist. Pt denies fever, sore throat, and ear pain. He states he doesnt not feel anxious and he does have difficulty walking describes it as imbalance. In the last few weeks to months he states he is reacting differently to loud noise, heat, and change in positions. He denies drug and etoh use. Hx of anxiety, took klonopin increased sx were anxiety related. I reviewed the patients multiple visits. I consulted Dr. Kelly and he states the CSF was negative and he will f/u with the patient. - Diagnoses Differential Diagnoses/HQI/PQRI: Metabolic Abnormality, Other - gb syndrome/ meningitis Provider Diagnoses: Headache - Physician Notifications Discussed Care Of Patient With: Mook Kelly Time Discussed With Above Provider: 21:41 Instructed by Provider To: Other - He stated the CSF was negative and he suggested following up with him. - Critical Care Time Critical Care Time: 30-74 min - headache Discharge - Sign-Out/Discharge Documenting (check all that apply): Patient Departure - Discharge Plan Condition: Stable Disposition: HOME Patient Education Materials: Acute Headache (ED) Referrals: [facility] [Favor, APPLICATION, OTHER] - 2 Days Mook Kelly MD [Medical Doctor] - 2 Days Additional Instructions: Follow up with your primary care physician in 1-3 days. RETURN TO THE EMERGENCY DEPARTMENT FOR CHANGING OR WORSENING SYMPTOMS. - Billing Disposition and Condition Condition: STABLE Disposition: Home - Attestation Statements Document Initiated by Shefalie: Yes Documenting Scribe: Mitchel Jaimes Provider For Whom Aishwarya is Documenting (Include Credential): Dago Granda MD Scribe Attestation: IMitchel , scribed for Dago Granda MD on 03/11/18 at 1507. Scribe Documentation Reviewed: Yes Provider Attestation: The documentation as recorded by the Mitchel hanks accurately reflects the service I personally performed and the decisions made by me, Dago Granda MD Status of Scribe Document: Viewed
[2018-03-10] MEDS ORDERED: Lidocaine 2% EPI 1:200000 MPF*10-20 ML VIAL ONE (19:30)
[2018-03-10] MEDS ORDERED: NS 0.9% 1000 ML** 2,000 ML IV ONE (20:12)
[2018-03-10] MEDS ORDERED: Ondansetron INJ* 2 MG/ML VIAL IV ONE (20:13)
[2018-03-10 20:59] LABS: Body Fluid Source Cerebral Spinal
[2018-03-10 21:12] LABS: CSF Glucose 61 mg/dL (40-70)
[2018-03-10 21:35] LABS: Body Fluid Mono 2 %
[2018-03-10 22:07] VITALS: BP 116/63
== END 2018-03-10 22:08 | disposition home or self-care (01) ==
LOC: ED 17:15
DX: R51 Headache (principal); R07.9 Chest pain, unspecified; R06.02 Shortness of breath
CPT/HCPCS: 36415; 62270; 82945; 84157; 87070; 87205; 89051; 99283; J2405

== ENCOUNTER 2018-03-12 00:42 | Emergency (ER) | payer OTHER ==
[2018-03-12 00:51] VITALS: BP 134/79
== END 2018-03-12 02:00 | disposition left against medical advice (07) ==
LOC: ED 00:42
DX: R51 Headache (principal)
CPT/HCPCS: 99282

== ENCOUNTER → 2018-03-12 11:26 | Emergency (ER) | payer OTHER ==
[~2018-03-12 11:26] MED LIST changes: -ALPRAZolam TAB* 0.5 MG PO ONE; +Gadoteridol* (CONTRAST) 279.3 MG/ML 10 ML IV ONE
[2018-03-12 14:47] LABS: ABS Basophils 0 10^3/ul (0-0.2); ABS Eosinophils 0.1 10^3/ul (0-0.6); ABS Lymphocytes 1.2 10^3/ul (1.0-4.8); ABS Monocytes 0.6 10^3/ul (0-0.8); ABS Neutrophils 3.5 10^3/ul (1.5-7.7); ABS Nucleated RBC 0 10^3/ul; Eosinophil % 2.3 %; Hematocrit 46 % (42-52); Hemoglobin 15.4 g/dl (14.0-18.0); Lymphocyte % 22.1 %; Mean Corpuscular HGB Conc 34 g/dl (31-36); Mean Corpuscular Hemoglobin 31 pg (27-31); Mean Corpuscular Volume 91 fL (80-94); Mean Platelet Volume 8.8 fL (7.4-10.4); Nucleated Red Blood Cells % 0; Platelet Count 181 10^3/ul (150-450); Red Blood Count 4.99 10^6/ul (4.00-5.40); Red Cell Distribution Width 12 % (10.5-15); White Blood Count 5.4 10^3/ul (3.5-10.8)
[2018-03-12 15:08] LABS: Albumin 4.8 g/dL (3.2-5.2); BUN/Creatinine Ratio 15.4 (8-20); Calcium 9.6 mg/dL (8.6-10.3); EGFR African American 107.1 (>60); EGFR Non-African American 88.5 (>60); Globulin 2.4 g/dL (2-4); Potassium 4.2 mmol/L (3.5-5.0); Total Bilirubin 0.5 mg/dL (0.2-1.0); Total Protein 7.2 g/dL (6.4-8.9)
--- NOTE | 2018-03-12 15:33 | ED ---
Headache - HPI Summary HPI Summary: patient is a 22-year-old male presenting to the ED multiple times this week with complaint of posterior/occipital headache is a pressure also with some intermittent numbness to his hands and cheeks. He states prior to this he had cold-like symptoms. Denies any fevers, sweats, chills. Denies any visual changes or disturbances. He states he was sent in from the neurology office today by Dr. Rodriguez for further workup to get an MRI of the brain and neck with and without IV contrast. Workup over the past week has all been negative including chest abdomen CTA as well as brain CT. He denies any current concerns or complaints at this time. Patient is asymptomatic. - History Of Current Complaint Chief Complaint: EDHeadache Stated Complaint: SYNCOPE/NUMBNESS Time Seen by Provider: 03/12/18 13:09 Hx Obtained From: Patient Onset/Duration: Started weeks ago Initially Headache Was: Initial Pain Scale(0-10)= - 0 Timing: Constant Character: Pressure Location of Headache: Occipital Aggravating Factor: Nothing Allevating Factors: Nothing Associated Signs And Symptoms: Negative - Risk Factors SAH Risk Factors: Negative Meningitis Risk Factors: Negative SDH Risk Factors: Negative Temporal Arteritis Risk Factors: Negative - Allergies/Home Medications Allergies/Adverse Reactions: Allergies Allergy/AdvReac Type Severity Reaction Status Date / Time No Known Allergies Allergy Verified 03/09/18 20:13 PMH/Surg Hx/FS Hx/Imm Hx Previously Healthy: Yes Endocrine/Hematology History: Denies: Hx Thyroid Disease Cardiovascular History: Denies: Hx Hypertension Respiratory History: Denies: Hx Asthma, Hx Chronic Obstructive Pulmonary Disease (COPD) Sensory History: Denies: Hx Legally Blind Opthamlomology History: Denies: Hx Legally Blind Psychiatric History: Reports: Hx Anxiety - Immunization History Hx Pertussis Vaccination: No Immunizations Up to Date: Yes Infectious Disease History: No Infectious Disease History: Denies: Traveled Outside the [place] in Last 30 Days - Family History Known Family History: Positive: Other - Hailey thyroditis Negative: Blood Disorder Family History: Hailey thyroditis - Social History Occupation: Unemployed, Student Lives: Alone Alcohol Use: Occasionally Hx Substance Use: No Substance Use Type: Reports: None Hx Tobacco Use: No Smoking Status (MU): Never Smoked Tobacco Review of Systems Constitutional: Negative Negative: Fever, Chills, Fatigue, Skin Diaphoresis Negative: Epistaxis, Dental Pain Negative: Palpitations, Chest Pain Genitourinary: Negative Positive: no symptoms reported, see HPI Negative: Arthralgia, Myalgia Positive: Headache All Other Systems Reviewed And Are Negative: Yes Physical Exam Triage Information Reviewed: Yes Vital Signs On Initial Exam: Initial Vitals Temp Pulse Resp BP Pulse Ox 98.6 F 59 18 124/74 98 03/12/18 11:33 03/12/18 11:33 03/12/18 11:33 03/12/18 11:33 03/12/18 11:33 Vital Signs Reviewed: Yes Appearance: Positive: Well-Appearing, No Pain Distress, Well-Nourished Skin: Positive: Warm, Skin Color Reflects Adequate Perfusion Head/Face: Positive: Normal Head/Face Inspection Eyes: Positive: EOMI, DALIA, Conjunctiva Clear Neck: Positive: Supple, No Lymphadenopathy Respiratory/Lung Sounds: Positive: Clear to Auscultation, Breath Sounds Present Cardiovascular: Positive: RRR, Pulses are Symmetrical in both Upper and Lower Extremities Musculoskeletal: Positive: Normal, Strength/ROM Intact Neurological: Positive: Sensory/Motor Intact, Alert, Oriented to Person Place, Time, Speech Normal Psychiatric: Positive: Affect/Mood Appropriate AVPU Assessment: Alert Diagnostics - Vital Signs Vital Signs Temp Pulse Resp BP Pulse Ox 03/12/18 11:33 98.6 F 59 18 124/74 98 - Laboratory Lab Results: Lab Results 03/12/18 03/12/18 Range/Units 14:42 14:42 WBC 5.4 (3.5-10.8) 10^3/ul RBC 4.99 (4.00-5.40) 10^6/ul Hgb 15.4 (14.0-18.0) g/dl Hct 46 (42-52) % MCV 91 (80-94) fL MCH 31 (27-31) pg MCHC 34 (31-36) g/dl RDW 12 (10.5-15) % Plt Count 181 (150-450) 10^3/ul MPV 8.8 (7.4-10.4) fL Neut % (Auto) 63.9 % Lymph % (Auto) 22.1 % [place] % (Auto) 11.0 % Eos % (Auto) 2.3 % Baso % (Auto) 0.7 % Absolute Neuts (auto) 3.5 (1.5-7.7) 10^3/ul Absolute Lymphs (auto) 1.2 (1.0-4.8) 10^3/ul Absolute Monos (auto) 0.6 (0-0.8) 10^3/ul Absolute Eos (auto) 0.1 (0-0.6) 10^3/ul Absolute Basos (auto) 0 (0-0.2) 10^3/ul Absolute Nucleated RBC 0 10^3/ul Nucleated RBC % 0 Sodium 139 (135-145) mmol/L Potassium 4.2 (3.5-5.0) mmol/L Chloride 106 (101-111) mmol/L Carbon Dioxide 28 (22-32) mmol/L Anion Gap 5 (2-11) mmol/L BUN 16 (6-24) mg/dL Creatinine 1.04 (0.67-1.17) mg/dL Est GFR ( Amer) 107.1 (>60) Est GFR (Non-Af Amer) 88.5 (>60) BUN/Creatinine Ratio 15.4 (8-20) Glucose 105 H (70-100) mg/dL Calcium 9.6 (8.6-10.3) mg/dL Total Bilirubin 0.50 (0.2-1.0) mg/dL AST 24 (13-39) U/L ALT 14 (7-52) U/L Alkaline Phosphatase 51 (34-104) U/L Total Protein 7.2 (6.4-8.9) g/dL Albumin 4.8 (3.2-5.2) g/dL Globulin 2.4 (2-4) g/dL Albumin/Globulin Ratio 2.0 (1-3) Result Diagrams: 03/12/18 14:42 03/12/18 14:42 Lab Statement: Any lab studies that have been ordered have been reviewed, and results considered in the medical decision making process. Headache Course/Dx - Course Course Of Treatment: During the course of treatment, patient is evaluated for persistent headache over the past week. Dr. Rodriguez call the ED and requested MRI of brain and neck with and without contrast. On arrival, this was ordered for patient. Labs obtained and are normal. Signed out to Mook Mark PA-C awaiting MRI results. Patient remained stable and is asymptomatic. - Diagnoses Provider Diagnoses: Headache Discharge - Sign-Out/Discharge Documenting (check all that apply): Sign-Out Patient Signing out patient TO: Mook Mark - Discharge Plan Condition: Good Referrals: No Primary Care Phys,NOPCP [Primary Care Provider] - - Billing Disposition and Condition Condition: GOOD
[2018-03-12 18:38] VITALS: BP 118/60
== END | disposition home or self-care (01) ==
LOC: ED 11:26
DX: R51 Headache (principal)
CPT/HCPCS: 36415; 70553; 72156; 80053; 85025; 99283; A9579

== ENCOUNTER 2018-05-07 05:26 | Emergency (ER) | payer OTHER ==
[2018-05-07] MEDS ORDERED: Ketorolac INJ* 30 MG/ML 1 ML VIAL IV PUSH ONE (05:56)
[2018-05-07] MEDS ORDERED: diPHENhydraMINE IV* 50 MG/ML 1 ml VIAL (BENADRYL) IV ONE (05:56)
[2018-05-07] MEDS ORDERED: Metoclopramide IV* 5 MG/ML 2 ML VIAL IV ONE (05:56)
[2018-05-07] MEDS ORDERED: NS 0.9% 1000 ML** 1,000 ML IV ONE (05:57)
[2018-05-07 06:36] LABS: ALT 9 U/L (7-52); AST 19 U/L (13-39); Albumin 4.4 g/dL (3.2-5.2); Albumin/Globulin Ratio 1.9 (1-3); Alkaline Phosphatase 54 U/L (34-104); Anion Gap 6 mmol/L (2-11); BUN/Creatinine Ratio 18.4 (8-20); Blood Urea Nitrogen 14 mg/dL (6-24); C Reactive Protein < 1.00 mg/L (<8.01); CO2 Carbon Dioxide 29 mmol/L (22-32); Calcium 9.2 mg/dL (8.6-10.3); Chloride 105 mmol/L (101-111); EGFR African American 153.8 (>60); EGFR Non-African American 127.1 (>60); Globulin 2.3 g/dL (2-4); Glucose 102 mg/dL (70-100); Potassium 3.7 mmol/L (3.5-5.0); Sodium 140 mmol/L (135-145); Total Protein 6.7 g/dL (6.4-8.9)
[2018-05-07 08:01] VITALS: BP 107/67
--- NOTE | 2018-05-08 05:00 | ED ---
Headache - HPI Summary HPI Summary: Patient is a 22yo M with a hx of recent CÁRDENAS presenting to the ED. He has been seen by Dr. Rodriguez and has had several images to r/o abnormalities. He states he was dx with lyme disease from an [facility] MD and now has been on doxycycline x 3 weeks. Today, he developed a 2 hour hx of R sided head pain in which she states this is not a "headache" he feels more pain to the actual scalp of his right had an behind the eye. He states this differs from his previous symptoms. He is very anxious on arrival. He denies any fevers, sweats, chills , recent illness, peripheral vision, double vision. Patient does have a history of anxiety. - History Of Current Complaint Chief Complaint: EDGeneral Stated Complaint: RIGHT SIDE OF HEAD SWOLLEN, PER PT Time Seen by Provider: 05/07/18 05:32 Hx Obtained From: Patient Onset/Duration: Sudden Onset Initially Headache Was: "Worst Headache Ever" - 2 Currently Pain Is: Current Pain Scale(0-10)= - 2 Character: Pressure Location of Headache: Other: - behind the R eye Aggravating Factor: Nothing Allevating Factors: Nothing Associated Signs And Symptoms: Negative - Risk Factors SAH Risk Factors: Negative Meningitis Risk Factors: Negative SDH Risk Factors: Negative Temporal Arteritis Risk Factors: Negative - Allergies/Home Medications Allergies/Adverse Reactions: Allergies Allergy/AdvReac Type Severity Reaction Status Date / Time No Known Allergies Allergy Verified 05/08/18 04:16 Home Medications: Home Medications clonazePAM [Clonazepam] 0.5 mg PO BID PRN 05/07/18 [History Confirmed 05/07/18] PMH/Surg Hx/FS Hx/Imm Hx Previously Healthy: Yes Endocrine/Hematology History: Denies: Hx Thyroid Disease Cardiovascular History: Denies: Hx Hypertension, Hx Pacemaker/ICD Respiratory History: Denies: Hx Asthma, Hx Chronic Obstructive Pulmonary Disease (COPD) Sensory History: Denies: Hx Legally Blind, Hx Hearing Aid Opthamlomology History: Denies: Hx Legally Blind Psychiatric History: Reports: Hx Anxiety Denies: Hx Panic Disorder - Surgical History Surgery Procedure, Year, and Place: ORAL SURGERY - Immunization History Hx Pertussis Vaccination: No Immunizations Up to Date: Yes Infectious Disease History: No Infectious Disease History: Denies: Traveled Outside the [place] in Last 30 Days - Family History Known Family History: Positive: Other - Hailey thyroditis Negative: Blood Disorder Family History: Hailey thyroditis - Social History Occupation: Unemployed Lives: Alone Alcohol Use: Occasionally Hx Substance Use: No Substance Use Type: Reports: None Hx Tobacco Use: No Smoking Status (MU): Never Smoked Tobacco Review of Systems Negative: Fever, Chills, Fatigue, Skin Diaphoresis Negative: Blurred Vision, Diplopia Negative: Palpitations, Chest Pain Negative: Arthralgia Skin: Negative Positive: Headache All Other Systems Reviewed And Are Negative: Yes Physical Exam Triage Information Reviewed: Yes Vital Signs On Initial Exam: Initial Vitals Temp Pulse Resp BP Pulse Ox 98.4 F 61 16 136/85 98 05/07/18 05:28 05/07/18 05:28 05/07/18 05:28 05/07/18 05:28 05/07/18 05:28 Vital Signs Reviewed: Yes Appearance: Positive: Well-Appearing, Well-Nourished Skin: Positive: Warm, Skin Color Reflects Adequate Perfusion Head/Face: Positive: Normal Head/Face Inspection Eyes: Positive: EOMI, Conjunctiva Clear Neck: Positive: Supple, No Lymphadenopathy Respiratory/Lung Sounds: Positive: Clear to Auscultation, Breath Sounds Present Cardiovascular: Positive: Pulses are Symmetrical in both Upper and Lower Extremities Musculoskeletal: Positive: Strength/ROM Intact Neurological: Positive: Sensory/Motor Intact, Alert, Oriented to Person Place, Time, Speech Normal - TOO Psychiatric: Positive: Affect/Mood Appropriate Diagnostics - Vital Signs Vital Signs Temp Pulse Resp BP Pulse Ox 05/07/18 08:00 98.7 F 69 18 107/67 98 05/07/18 07:40 67 101/69 99 05/07/18 07:09 58 119/72 98 05/07/18 07:00 60 97 05/07/18 06:39 67 110/69 100 05/07/18 06:10 67 129/71 97 05/07/18 06:09 68 98 05/07/18 05:28 98.4 F 61 16 136/85 98 - Laboratory Lab Results: Lab Results 05/07/18 05/07/18 Range/Units 06:04 06:04 ESR 2 (0-15) mm/Hr Sodium 140 (135-145) mmol/L Potassium 3.7 (3.5-5.0) mmol/L Chloride 105 (101-111) mmol/L Carbon Dioxide 29 (22-32) mmol/L Anion Gap 6 (2-11) mmol/L BUN 14 (6-24) mg/dL Creatinine 0.76 (0.67-1.17) mg/dL Est GFR ( Amer) 153.8 (>60) Est GFR (Non-Af Amer) 127.1 (>60) BUN/Creatinine Ratio 18.4 (8-20) Glucose 102 H (70-100) mg/dL Calcium 9.2 (8.6-10.3) mg/dL Total Bilirubin 0.30 (0.2-1.0) mg/dL AST 19 (13-39) U/L ALT 9 (7-52) U/L Alkaline Phosphatase 54 (34-104) U/L C-Reactive Protein < 1.00 (<8.01) mg/L Total Protein 6.7 (6.4-8.9) g/dL Albumin 4.4 (3.2-5.2) g/dL Globulin 2.3 (2-4) g/dL Albumin/Globulin Ratio 1.9 (1-3) Result Diagrams: 05/07/18 06:04 Lab Statement: Any lab studies that have been ordered have been reviewed, and results considered in the medical decision making process. Headache Course/Dx - Course Course Of Treatment: During the course of treatment, the patient is evaluated for right-sided head pain with headache behind the eye. I discussed with the patient at length treatment options. If this pain is only been present for a few hours, I have offered PO tylenol. He declines. He states he is very concerned. I have agreed to provide labs and given todadol, reglan and benadryl. He states he feels better and the CÁRDENAS and pressure has improved. He remains concerned however. I discussed with the patient, we will not image today as he has had multiple scans with no findings. I have suggested at this point because he feels improved, he will speak with Dr. rodriguez if he has any worsening or changing symptoms. I have also discussed the patient this may be a side effect of his doxycycline medication. He states he was diagnosed with Lyme disease, however Lyme titers were negative at [facility]. - Diagnoses Differential Diagnosis/HQI/PQRI: Other - head pressure Provider Diagnoses: Pressure in head Discharge - Sign-Out/Discharge Documenting (check all that apply): Patient Departure Patient Received Moderate/Deep Sedation with Procedure: No - Discharge Plan Condition: Stable Disposition: HOME Referrals: Ariela Maki DIRECT SERVICE WORKER [Primary Care Provider] - Additional Instructions: Please follow up with your PCP and neurologist as discussed If you develop any headaches, pressures or pain - Take Tylenol 650mg If symptoms persist despite the medication, please come to the ED or follow up with Dr. King Mohsen Echols Disposition and Condition Condition: STABLE Disposition: Home
== END 2018-05-07 08:00 | disposition home or self-care (01) ==
LOC: ED 05:26
DX: G44.209 Tension-type headache, unspecified, not intractable (principal); F41.9 Anxiety disorder, unspecified
CPT/HCPCS: 36415; 80053; 85652; 86140; 96361; 96374; 96375; 99282; J1200; J1885; J2765

== ENCOUNTER 2018-05-08 04:10 | Emergency (ER) | payer OTHER ==
--- NOTE | 2018-05-08 04:32 | ED ---
Headache - HPI Summary HPI Summary: Patient is a 22 y/o male who presents to the ED c/o head pressure. Yesterday he began to have head pressure, neck pressure, eye pressure, neck stiffness, back pain, near-syncope, and nausea. Patient notes it does not feel like a typical headache or migraine, and describe it as if his brain is swelling. He denies any fever. He came to the ED for these symptoms and was given migraine medications which did not work. Patient fell asleep after returning from the hospital and woke up again with worse pain, now rated a 9/10 in severity. He started having medical issues summer after being bitten by a tick. He presented with facial numbness, difficulty breathing, nausea, abdominal pain, and headaches. Patient was diagnosed with Lyme disease in March 2018 and has been taking 200 mg Doxycycline BID since. In addition to these new symptoms patient also currently c/o his constant shooting pains, tremors, and anxiety. He has seen Dr. Rodriguez for a neurology workup. Patient took Tylenol and Klonopin [employer] without any relief. PMHx anxiety. - History Of Current Complaint Stated Complaint: "HEAD PRESSURE,STIFF NECK HAS GOTTEN WORSE" PER PT Hx Obtained From: Patient Onset/Duration: Gradual Onset, Started days ago - Yesterday, Worse Since Currently Pain Is: Severe - 9/10 Timing: Constant Aggravating Factor: Nothing Allevating Factors: Nothing Associated Signs And Symptoms: Nausea, Neck Pain, Neck Stiffness Related History: Similar Episode/DX As: - diagnosed with Lyme dz, here yesterday for CÁRDENAS - Allergies/Home Medications Allergies/Adverse Reactions: Allergies Allergy/AdvReac Type Severity Reaction Status Date / Time No Known Allergies Allergy Verified 05/08/18 04:16 PMH/Surg Hx/FS Hx/Imm Hx Endocrine/Hematology History: Denies: Hx Thyroid Disease Cardiovascular History: Denies: Hx Hypertension, Hx Pacemaker/ICD Respiratory History: Denies: Hx Asthma, Hx Chronic Obstructive Pulmonary Disease (COPD) Sensory History: Denies: Hx Legally Blind, Hx Hearing Aid Opthamlomology History: Denies: Hx Legally Blind Psychiatric History: Reports: Hx Anxiety Denies: Hx Panic Disorder - Surgical History Surgery Procedure, Year, and Place: ORAL SURGERY Infectious Disease History: Yes Infectious Disease History: Reports: History Other Infectious Disease - Lyme disease Denies: Traveled Outside the [place] in Last 30 Days - Family History Known Family History: Positive: Other - Hailey thyroditis Negative: Blood Disorder - Social History Alcohol Use: Occasionally Hx Substance Use: No Substance Use Type: Reports: None Hx Tobacco Use: No Smoking Status (MU): Never Smoked Tobacco Review of Systems Negative: Fever Positive: Other - eye pressure Positive: Nausea Positive: Myalgia - back, neck, Other - neck stiffness Neurological: Other - shooting pains, tremors Positive: Headache - pressure, Syncope - near Positive: Anxious All Other Systems Reviewed And Are Negative: Yes Physical Exam - Summary Physical Exam Summary: Appearance: well appearing, no pain distress Skin: warm, dry, reflects adequate perfusion Head/face: normal Eyes: EOMI, DALIA, no papilledema, left eye pressure 14 mmHg, right eye pressure 15 mmHg ENT: mucous membranes moist Neck: supple, non-tender Respiratory: CTA, breath sounds present Cardiovascular: RRR, pulses symmetrical Abdomen: non-tender, soft Bowel Sounds: present Musculoskeletal: normal, strength/ROM intact Neuro: normal, sensory motor intact, A&Ox3 Psych: anxious Triage Information Reviewed: Yes Vital Signs On Initial Exam: Initial Vitals Temp Pulse Resp BP Pulse Ox 99.0 F 72 16 136/81 98 05/08/18 04:10 05/08/18 04:10 05/08/18 04:10 05/08/18 04:10 05/08/18 04:10 Vital Signs Reviewed: Yes Procedures - Procedure Summary Procedure Summary: Cervical Block for headache: Pt was verbally consented. Pt was sat upright and skin in the area of C5 posteriorly was cleaned with alcohol. 1.5cc of 0.25% bupivicaine with epi was injected 1.5cm off midline of C5 bilaterally for a total of 3cc. Pt tolerated this well and he had complete relief of his headache without complications. Diagnostics - Vital Signs Vital Signs Temp Pulse Resp BP Pulse Ox 05/08/18 04:10 99.0 F 72 16 136/81 98 - Laboratory Result Diagrams: 05/08/18 05:06 05/08/18 05:06 Lab Statement: Any lab studies that have been ordered have been reviewed, and results considered in the medical decision making process. Re-Evaluation - Re-Evaluation First Eval Re-Evaluation Time: 05:00 Change: Improved Comment: Pt's headache has improved after the nerve block. Measured eye pressure with Tonopen. Second Eval Re-Evaluation Time: 06:00 Change: Improved Comment: Pt now feels completely fine and is ready to be discharged. Headache Course/Dx - Course Course Of Treatment: Nurse's notes reviewed. 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 Today he has a lot of pressure mostly in the left side of his head with no other associated neuro symptoms. He does have a lot of anxiety that accompanies this and he researches it intensely. His fundus exam shows no evidence of papilledema and his intraocular pressures are 14 on the left and 15 on the right by Sammy-Pen. A cervical block was performed with bupivacaine which totally resolved his symptoms. Blood work today is entirely benign including TSH. He is feeling much improved at time of disposition and will follow-up with his neurologist. - Diagnoses Differential Diagnosis/HQI/PQRI: Meningitis, Migraine, Sinus Headache, Tension Headache, Viral Syndrome, Other - lyme, syphilis Provider Diagnoses: Headache, Anxiety, Lyme disease Discharge - Sign-Out/Discharge Documenting (check all that apply): Patient Departure - Discharge Patient Received Moderate/Deep Sedation with Procedure: No - Discharge Plan Condition: Improved Disposition: HOME Patient Education Materials: Lyme Disease (ED), Acute Headache (ED) Forms: *School Release Referrals: Ariela Maki NP [Primary Care Provider] - Additional Instructions: Call to follow up with your neurologist and primary care physician. Stay well- hydrated. Tylenol may help. Continue prescribed medications. Return if worse , fever, new symptoms or other concerns. - Billing Disposition and Condition Condition: IMPROVED Disposition: Home - Attestation Statements Document Initiated by Aishwarya: Yes Documenting Scribe: Radha Burks Provider For Whom Aishwarya is Documenting (Include Credential): Jorge Newton MD Scribe Attestation: Radha Suero scribed for Jorge Newton MD on 05/08/18 at 0608. Scribe Documentation Reviewed: Yes Provider Attestation: The documentation as recorded by the Radha hanks accurately reflects the service I personally performed and the decisions made by me, Jorge Newton MD Status of Scribe Document: Viewed
[2018-05-08] MEDS ORDERED: cefTRIAXone(*) 1 GM in NS 0.9% 50 ML* 50 ML IVPB ONE (04:42)
[2018-05-08] MEDS ORDERED: NS 0.9% 1000 ML** 1,000 ML IV ONE (04:42)
[2018-05-08] MEDS ORDERED: LORazepam INJ* 2 MG/ML 1 ML VIAL IV PUSH ONE (04:54)
[2018-05-08 05:12] LABS: ABS Basophils 0 10^3/ul (0-0.2); ABS Eosinophils 0.2 10^3/ul (0-0.6); ABS Lymphocytes 1.6 10^3/ul (1.0-4.8); ABS Monocytes 0.9 10^3/ul (0-0.8); ABS Neutrophils 4.6 10^3/ul (1.5-7.7); ABS Nucleated RBC 0 10^3/ul; Eosinophil % 2.3 %; Hematocrit 42 % (36-46); Hemoglobin 14.3 g/dL (14.0-18.0); Lymphocyte % 21.7 %; Mean Corpuscular HGB Conc 34 g/dL (31-36); Mean Corpuscular Hemoglobin 31 pg (27-31); Mean Corpuscular Volume 90 fL (80-94); Mean Platelet Volume 9.9 fL (7.4-10.4); Nucleated Red Blood Cells % 0.1; Platelet Count 155 10^3/uL (150-450); Red Blood Count 4.64 10^6 /uL (4.18-5.48); Red Cell Distribution Width 12 % (10.5-15); White Blood Count 7.3 10^3/uL (3.5-10.8)
[2018-05-08 05:31] LABS: BUN/Creatinine Ratio 14.7 (8-20); C Reactive Protein 3.49 mg/L (<8.01); Calcium 9.4 mg/dL (8.6-10.3); EGFR African American 109.5 (>60); EGFR Non-African American 90.5 (>60); Potassium 3.4 mmol/L (3.5-5.0)
[2018-05-08 06:00] LABS: TSH (Thyroid Stimulating Horm) 1.38 mcIU/mL (0.34-5.60)
[2018-05-08 06:04] VITALS: BP 120/83
== END 2018-05-08 06:14 | disposition home or self-care (01) ==
LOC: ED 04:10
DX: R51 Headache (principal); A69.20 Lyme disease, unspecified; F41.9 Anxiety disorder, unspecified; M54.9 Dorsalgia, unspecified; M54.2 Cervicalgia
CPT/HCPCS: 36415; 80048; 84443; 85025; 86140; 96361; 96365; 96375; 99283; J0696; J2060